=== PATIENT | female | born 1960 | race Caucasian/White ===

== ENCOUNTER 2019-03-07 10:10 | Outpatient (CLI) | payer BC, SELFPAY ==
--- NOTE | ~2019-03-07 | XR_ITS ---
EXAMINATION: XR lumbar spine 2-3V EXAM DATE: 03/07/2019 11:23 INDICATION: No known recent injury provided at this time. Pain of the low back. TECHNIQUE: Lumber spine frontal, lateral, lateral L5-S1 projections for interpretation. There is no prior study for comparison. FINDINGS: The vertebral bodies are aligned in the AP dimension. Vertebral body and disc heights are well-maintained. There is mild diffuse lumbar facet arthropathy. No spondylolysis. Sacrum, sacroiliac joints, sacral arcuate lines are intact. Paraspinal soft tissue is unremarkable. IMPRESSION: 1. Mild lumbar facet arthropathy. Reviewed, dictated and finalized at location B. BILITATION CLERK
--- NOTE | 2019-03-07 11:15 | NEURO_ITS ---
Patient Number: [id number] Impression: # Complains of rodent exterminator feet problems. No history of diabetes. 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 # Neurogenic changes in distal muscles. # Further evaluation recommended. Nerve Conduction Studies Anti Sensory Summary Table Stim Site NR Peak (ms) P-T Amp (?V) Site1 Site2 Delta-P (ms) Dist (cm) Og (m/s) Left Sup Fibular Anti Sensory (Ant Lat Mall) 14 cm 4.6 20.5 14 cm Ant Lat Mall 4.6 16.0 35 Right Sup Fibular Anti Sensory (Ant Lat Mall) 14 cm 3.5 9.2 14 cm Ant Lat Mall 3.5 16.0 46 Left Sural Anti Sensory (Lat Mall) Calf 3.8 9.9 Calf Lat Mall 3.8 16.0 42 Right Sural Anti Sensory (Lat Mall) Calf 3.4 22.1 Calf Lat Mall 3.4 16.0 47 Motor Summary Table Stim Site NR Onset (ms) O-P Amp (mV) Site1 Site2 Delta-0 (ms) Dist (cm) Og (m/s) Left Peroneal Motor (Vastus Med) NO RESPONSE Ankle NR Popit NR Right Peroneal Motor (Vastus Med) Ankle 4.5 0.4 Popit Ankle 7.9 35.0 44 Popit 12.4 0.3 Left Tibial Motor (Abd Stokes Brev) NO RESPONSE Ankle NR Knee NR Right Tibial Motor (Abd Stokes Brev) NO RESPONSE Ankle NR Knee NR F Wave Studies NR F-Lat (ms) L-R F-Lat (ms) Left Peroneal (Mrkrs) (EDB) 61.05 2.11 Right Peroneal (Mrkrs) (EDB) 58.95 2.11 Left Tibial (Mrkrs) (Abd Hallucis) 59.88 1.52 Right Tibial (Mrkrs) (Abd Hallucis) 58.36 1.52 EMG Side Muscle Nerve Root Ins Act Fibs Amp Dur Recrt Comment Right AntTibialis Dp Br Fibular L4-5 Nml Nml Decr Nml Reduced Right Gastroc Tibial S1-2 Nml Nml Decr Nml Reduced Right Fibularis Long Sup Br Fibular L5-S1 Nml Nml Decr Nml Reduced Right Flex Dig Long Tibial L5-S2 Nml Nml Nml Nml Nml Right Ext Dig Brev Dp Br Fibular L5, S1 Nml Nml Decr >12ms Reduced Left AntTibialis Dp Br Fibular L4-5 Nml Nml Decr Nml Reduced Left Gastroc Tibial S1-2 Nml Nml Decr Nml Reduced Left Fibularis Long Sup Br Fibular L5-S1 Nml Nml Decr Nml Reduced Left Flex Dig Long Tibial L5-S2 Nml Nml Nml Nml Nml Left Ext Dig Brev Dp Br Fibular L5, S1 Nml Nml Decr >12ms Reduced Left AbdHallucis MedPlantar S1-2 Nml Nml Decr >12ms Reduced Right AbdHallucis MedPlantar S1-2 Nml Nml Decr >12ms Reduced MTDD
== END 2019-03-07 10:11 | disposition home or self-care (01) ==
PROVIDERS: PCP Family Medicine; Visit Provider Family Medicine
DX: G62.9 Polyneuropathy, unspecified (principal)
CPT/HCPCS: 72100; 95886; 95910

== ENCOUNTER → 2020-01-09 09:28 | Outpatient (REF) | payer BC, SELFPAY | LOC: ANHLAB 09:28 | PROVIDERS: PCP Family Medicine; Visit Provider Nurse Practitioner | DX: L82.1 Other seborrheic keratosis (principal); C44.311 Basal cell carcinoma of skin of nose | CPT/HCPCS: 88305 ==

== ENCOUNTER → 2020-03-25 08:54 | Outpatient (REF) | payer BC, SELFPAY | LOC: ANHLAB 08:54 | PROVIDERS: PCP Family Medicine; Visit Provider Nurse Practitioner | DX: C44.311 Basal cell carcinoma of skin of nose (principal) | CPT/HCPCS: 88305; 88331 ==

== ENCOUNTER 2021-09-19 09:16 | Outpatient (CLI) | payer OTHER, SELFPAY ==
--- NOTE | ~2021-09-19 | MM_ITS ---
EXAMINATION: MM screening [facility] BI w edd HISTORY: Screening mammogram TECHNIQUE: Craniocaudal and mediolateral oblique 3-D tomosynthesis images were obtained and synthetic 2-D images were generated. CAD analysis was submitted and interpreted. COMPARISON: 05/27/2018, 03/16/2014 BREAST PARENCHYMAL COMPOSITION: There are scattered areas of fibroglandular density. FINDINGS: There is no suspicious mass, calcification, or architectural distortion to suggest malignan cy in either breast. There has been no suspicious interval change. IMPRESSION: 1. No mammographic evidence of malignancy. 2. Recommend routine screening mammography in one year. BI-RADS Category 1: Negative Reviewed, dictated and finalized at location A.
== END 2021-09-19 09:17 | disposition home or self-care (01) ==
PROVIDERS: PCP Family Medicine; Visit Provider Family Medicine
DX: Z12.31 Encounter for screening mammogram for malignant neoplasm of breast (principal)
CPT/HCPCS: 77063; 77067

== ENCOUNTER 2021-10-07 16:42 | Outpatient (CLI) | payer OTHER, SELFPAY ==
--- NOTE | ~2021-10-07 | XR_ITS ---
XR hip BI 2V w AP pelvis DATE: 10/07/2021 17:06 INDICATION: Low back pain, bilateral hip pain TECHNIQUE: AP pelvis. AP and lateral views of each hip. COMPARISON: None FINDINGS: No pelvic fracture or bone destruction. The pubic symphysis and sacroiliac joints are intac t. No fracture or dislocation, avascular necrosis or bone destruction of either hip. Hip joint spaces ar e symmetric and well preserved. IMPRESSION: Negative Reviewed, dictated and finalized at location B. IMPRESSION: Negative
--- NOTE | ~2021-10-07 | XR_ITS ---
XR lumbar spine 2-3V DATE: 10/07/2021 17:06 INDICATION: Low back pain TECHNIQUE: AP, lateral, coned lateral lumbosacral views COMPARISON: 03/07/2019 lumbar spine FINDINGS: No fracture or dislocation or spondylolisthesis. Lumbar pedicles and included lower thoraci c pedicles are intact. Lumbar and lumbosacral interspaces are well preserved. The sacroiliac joints a re normal. IMPRESSION: Negative Reviewed, dictated and finalized at location B. IMPRESSION: Negative
== END 2021-10-07 16:43 | disposition home or self-care (01) ==
PROVIDERS: PCP Family Medicine; Visit Provider Physician Assistant
DX: M54.50 Low back pain, unspecified (principal); M25.559 Pain in unspecified hip
CPT/HCPCS: 72100; 73521

== ENCOUNTER → 2021-11-21 08:35 | Outpatient (CLI) | payer OTHER, SELFPAY ==
--- NOTE | ~2021-11-21 | MR_ITS ---
EXAMINATION: MR lumbar spine wo con DATE: 11/21/2021 09:08 INDICATION: Low back pain with sciatica including 2 months of right leg pain TECHNIQUE: Magnetic resonance imaging (MRI) of the lumbar spine was performed without intravenous con trast. Sequences included sagittal T2-weighted FSE, sagittal T2-weighted FS FSE, sagittal T1-weighted FSE, and axial T2-weighted FSE. COMPARISON: None FINDINGS: Alignment is normal. Vertebral body heights are normal. T1 and T2 hyperintense hemangioma at L3 and L 5. Marrow signal is otherwise normal. Disc heights are normal. The conus medullaris terminates at L1. There is normal signal in the caudal spinal cord. Paravertebral soft tissues are unremarkable. The f ollowing disc levels are specifically discussed: T12-L1: The disc does not extend beyond the endplate margin. There is minimal bilateral facet joint o steoarthritis. There is no neural foraminal stenosis. There is no central canal stenosis. L1-L2: The disc does not extend beyond the endplate margin. There is mild left and minimal right face t joint osteoarthritis. There is no neural foraminal stenosis. There is no central canal stenosis. L2-L3: The disc does not extend beyond the endplate margin. There is mild to moderate bilateral facet joint osteoarthritis. There is minimal bilateral neural foraminal stenosis. There is no central beverly l stenosis. L3-L4: The disc does not extend beyond the endplate margin. There is mild bilateral facet joint osteo arthritis. There is minimal bilateral neural foraminal stenosis. There is no central canal stenosis. L4-L5: Disc is mildly bulging. There is hypertrophy of the ligamentum flavum. There is moderate left and severe right facet joint osteoarthritis. There is mild bilateral neural foraminal stenosis. Ther e is mild central canal stenosis along with narrowing of the lateral recesses,, greater on the right where there appears be some compression of the traversing right L5 nerve root. L5-S1: The disc does not extend beyond the endplate margin. There is mild bilateral facet joint osteo arthritis. There is no neural foraminal stenosis. There is no central canal stenosis. IMPRESSION: 1. Mild lumbar spondylosis most prominent at L4-L5 compression of the traversing right and L5 nerve r oot at the right lateral recess. Correlate clinically for right-sided muscle weakness of great toe ex tension and sensory change of the medial foot and great toe. Reviewed, dictated and finalized at location B. IMPRESSION: 1. Mild lumbar spondylosis most prominent at L4-L5 compression of the traversin g right and L5 nerve root at the right lateral recess. Correlate clinically for right-sided muscle weakness of great toe extension and sensory change of the m edial foot and great toe.
== END ==
PROVIDERS: PCP Family Medicine; Visit Provider Physician Assistant
DX: M54.40 Lumbago with sciatica, unspecified side (principal); M47.896 Other spondylosis, lumbar region
CPT/HCPCS: 72148

== ENCOUNTER 2022-04-03 11:47 | Outpatient (CLI) | payer OTHER, SELFPAY ==
--- NOTE | ~2022-04-03 | XR_ITS ---
Lumbosacral Spine: AP and lateral views, with neutral, flexion, and extension positioning Clinical History: Pain Findings: The normal lordotic curve is maintained. The vertebral bodies and posterior elements are i ntact. No instability seen on flexion or extension. The intervertebral disc spaces are preserved. Th e sacroiliac joints are normally outlined. Impression: No significant abnormality. Reviewed, dictated and finalized at location . DENTIAL MORTGAGE MANAGER Impression: No significant abnormality.
== END 2022-04-03 11:48 | disposition home or self-care (01) ==
LOC: ANHIMG 11:49
PROVIDERS: PCP Family Medicine; Visit Provider Neurological Surgery
DX: M71.38 Other bursal cyst, other site (principal)
CPT/HCPCS: 72110

== ENCOUNTER 2022-05-22 13:26 | Outpatient (CLI) | payer OTHER, SELFPAY ==
--- NOTE | ~2022-05-22 | XR_ITS ---
XR lumbar spine min 4V 05/22/2022 14:17 Indication: Back pain Procedure: 4 views lumbar spine with flexion/extension views Comparison: 04/03/2022 Findings: There is first set hypertrophy at L4-5 and L5-S1 with grade 1 degenerative spondylolisthesi s at L4-5. No significant alteration of alignment with flexion/extension. No significant change from prior study. No fracture, subluxation or dislocation. Impression: 1: Mild lumbar spondylosis with grade 1 degenerative spondylolisthesis at L4-5. Reviewed, dictated and finalized at location B. Impression: 1: Mild lumbar spondylosis with grade 1 degenerative spondylolisthesis at L4-5.
--- NOTE | 2022-05-22 13:45 | ECG_ITS ---
Measurements Intervals Petros Rate: 66 P: 51 FL: 167 QRS: -9 QRSD: 97 T: 121 QT: 395 QTc: 415 Interpretive Statements SINUS RHYTHM BASELINE ARTIFACT LEFT VENTRICULAR HYPERTROPHY AND ST-T CHANGE ABNORMAL ECG NO PREVIOUS ECG AVAILABLE FOR COMPARISON Electronically Signed On 05-22-2022 16:54:53 CDT by Roque Gomez M.D.
[2022-05-22 14:11] LABS: Basophils Percent Auto 0.3 % (0.2-1.2); Eosinophils Absolute Auto 0.1 K/mm3 (0-0.3); Eosinophils Percent Auto 0.6 % (0-4.4); Hematocrit 44.5 % (37.0-47.0); Hemoglobin 14.4 g/dL (12.0-15.0); Immature Granulocyte Absolute 0.09 K/mm3 (0.00-0.031); Immature Granulocyte Percent A 0.7 % (0-0.5); Lymphocytes Absolute Auto 2.96 K/mm3 (0.9-3.2); Lymphocytes Percent Auto 23.9 % (18.3-44.2); Mean Corpuscular HGB Conc 32.4 g/dl (32-36); Mean Corpuscular Hemoglobin 28.9 pg (26-34); Mean Corpuscular Volume 89.2 fl (80-100); Mean Platelet Volume 9.4 fl (7.4-10.4); Monocytes Absolute Auto 1.1 K/mm3 (0.1-0.6); Monocytes Percent Auto 8.9 % (2.6-8.5); Neutrophils Absolute Auto 8.1 K/mm3 (1.3-6.7); Neutrophils Percent Auto 65.6 % (45.5-73.1); Platelet Count Result 359 k/mm3 (150-375); Red Blood Count 4.99 M/mm3 (4.2-5.4); Red Cell Distribution Width 14.2 % (11.5-14.5); White Blood Count 12.4 K/mm3 (4.5-10.0)
[2022-05-22 14:17] LABS: Appearance Urine Clear (Clear); Bacteria Urine 4+ /hpf; Bilirubin Urine Negative (Negative); Blood Urine 2+ (Negative); Color Urine Yellow (Yellow); Glucose Urine UA Negative (Negative); Ketones Urine Negative (Negative); Leukocyte Esterase Ur 2+ LEU/UL (Negative); Nitrate Urine Positive (Negative); Protein Urine Negative (Negative); Specific Grav Ur 1.024 (1.001-1.035); Squamous Epithelial Cell Urine None seen /hpf (Few); Urobilinogen Urine 0.2 mg/dL (<2.0); WBC Urine 21-50 /hpf
[2022-05-22 14:20] LABS: Anion Gap 6 mmol/L (8-16); Blood Urea Nitrogen 27 mg/dL (7-17); Calcium 9.9 mg/dL (8.4-10.2); Carbon Dioxide 34 mmol/L (22-30); Chloride 100 mmol/L (98-107); Estimated Glomerular Filt Rate > 60; Glucose 114 mg/dL (65-110); Potassium 3.6 mmol/L (3.4-5.0); Sodium 140 mmol/L (137-145)
[2022-05-22 14:21] LABS: Add Urine Microscopic? YES
[2022-05-22 14:23] LABS: Partial Thromboplastin Time 27.9 SECONDS (22.3-36.8); Prothrombin Time 13.2 Seconds (11.1-14.7)
== END 2022-05-22 13:27 | disposition home or self-care (01) ==
PROVIDERS: PCP Family Medicine; Visit Provider Neurological Surgery
DX: Z01.818 Encounter for other preprocedural examination (principal); M71.38 Other bursal cyst, other site; M47.816 Spondylosis without myelopathy or radiculopathy, lumbar region; R93.41 Abnormal radiologic findings on diagnostic imaging of renal pelvis, ureter, or bladder; I51.7 Cardiomegaly; R82.90 Unspecified abnormal findings in urine
CPT/HCPCS: 36415; 72110; 80048; 81001; 85025; 85610; 85730; 86850; 86870; 86880; 86900; 86901; 86902; 86905; 86922; 86971; 87077; 87086; 87186; 93005

== ENCOUNTER 2022-05-30 10:30 | Outpatient (CLI) | payer OTHER, SELFPAY ==
[2022-05-30 11:53] LABS: Appearance Urine Clear (Clear); Bacteria Urine None Seen /hpf; Bilirubin Urine Negative (Negative); Blood Urine 1+ (Negative); Color Urine Yellow (Yellow); Glucose Urine UA Negative (Negative); Hyaline Casts Urine Present /lpf; Ketones Urine Negative (Negative); Leukocyte Esterase Ur 1+ LEU/UL (Negative); Nitrate Urine Negative (Negative); Protein Urine Negative (Negative); RBC Urine 0-2 /hpf (0-2); Specific Grav Ur 1.017 (1.001-1.035); Squamous Epithelial Cell Urine Few /hpf (Few); Uric Acid Crystals Urine Present /hpf; Urobilinogen Urine 0.2 mg/dL (<2.0)
[2022-05-30 11:56] LABS: Add Urine Microscopic? YES
== END 2022-05-30 10:31 | disposition home or self-care (01) ==
PROVIDERS: PCP Family Medicine; Visit Provider Neurological Surgery
DX: R82.90 Unspecified abnormal findings in urine (principal)
CPT/HCPCS: 81001; 87086

== ENCOUNTER 2022-06-02 01:48 | Day surgery (SDC) | payer OTHER, SELFPAY ==
[2022-05-22 10:51] VITALS: BMI 30.9
--- NOTE | 2022-05-22 10:55 | PC.NURSE ---
Report to the Outpatient Waiting Room, entrance under the green pavilion located off [facility], at time 9:00 on date 06/02/22. Planned Procedure Time: 11:00. Time changes happen often and if your time is changed the preop area will call you the afternoon before. - You and your visitor will be asked to self-screen and do not enter if you have any COVID symptoms. - A mask is optional within the hospital at this time. Patients may have clear liquids (water, carbonated beverages, clear teas, apple juice) until 3 hours prior to surgery (8:00) with a maximum of 20 ounces. - No food from midnight until time of surgery Take the following medications with a SIP of water the morning of surgery: AMLODIPINE DO NOT STOP ANY OF YOUR OTHER PRESCRIPTION MEDICATIONS PRIOR TO SURGERY?EXCEPT THE FOLLOWING Medications to discontinue per physician: VITAMINS/SUPPLEMENTS Date to take last dose: 05/29/[address] CARR REGARDING ADVIL Please no make-up, nail german, hairspray, perfume, deodorant, or body powder the day of surgery. No jewelry (including any body piercings) or valuables the day of surgery, leave them at home. Please take a shower or bath the night before, or the morning of, surgery with an antibacterial soap. Wear comfortable, loose fitting clothing. - Jewelry must be removed prior to entering the operating room. Rings and piercings that are not removed may be cut off. - The hospital will not accept responsibility for valuables. - Please leave all valuables, including medications, at home the day of surgery. If you are going home after surgery, a licensed hazardous materials tanker driver must drive you home. - NO public transportation without another adult if you receive anesthesia. - We recommend that an adult stay with you for 24 hours following discharge. - We also recommend that you do not drive, make important decision, drink alcoholic beverages, or take any drugs that were not prescribed by your health care provider for at least 24 hours after your discharge time. Follow any additional instructions given to you from your surgeon. If you or anyone in your household have experienced Covid symptoms in the past week, please notify your surgeon or the nurse liaison at the phone number below for possible testing. Telephone instructions given to PT - JING HANCOCK and asked if any additional questions and then verbalized understanding. Patient advised to call surgeon office or pre surgery nurse liaison [phone] if any additional questions.
[2022-06-02] VITALS (8 sets, daily range): BP systolic 101–140; BP diastolic 46–73; PULSE 59–76; RESP 12–18; TEMP 37–37.1; O2SAT 98–100
--- NOTE | ~2022-06-02 | XR_ITS ---
EXAMINATION: XR fluoroscopy no charge DATE: 06/02/2022 11:46 INDICATION: L4-L5 lumbar decompression with removal of synovial cyst TECHNIQUE: Single lateral fluoroscopic spot image of the lower lumbar spine was obtained during proce dure performed by Dr. Oshea . Radiologist was not present for the imaging or procedure. The amount of fluoroscopy time used during this procedure was 0.1 minutes. COMPARISON: None. FINDINGS/IMPRESSION: Single spot image demonstrates a metallic probe projecting over the posterior ma rgin of the L4-L5 facet joints. See procedure note for further detail. Reviewed, dictated and finalized at location A.
[2022-06-02] MEDS: LACTATED RINGERS 1,000 ML 30 ML IV CONT (08:00)
--- NOTE | 2022-06-02 08:38 | WPDANESEPPF ---
Anes - Initial Pre Proc Eval Procedure: Operation Date: 06/02/22 09:00 Proposed Procedures p Lumbar Decompression with Removal Synovial Cyst L4-5 - Mary Oshea MD Date/Time: 06/02/22 08:38 Surgeon: Mary Oshea MD Pre Op Diagnosis: Lumbar Synovial Cyst Patient Data Age: 61 Gender: F Height: 1.63 m Weight: 88.9 kg Last Vital Signs Temp 37.1 C 06/02/22 07:30 Pulse 64 06/02/22 07:30 Resp 18 06/02/22 07:30 BP 140/72 06/02/22 07:30 Pulse Ox 98 06/02/22 07:30 O2 Del Method Room Air 06/02/22 07:30 Allergies Allergy/AdvReac Type Severity Reaction Status Date / Time No Known Allergies Allergy Unknown Verified 06/02/22 08:11 Home Medications Medication Instructions Recorded Confirmed Type amlodipine 5 mg tablet 5 mg PO DAILY #90 tabs 04/03/22 06/02/22 Rx hydrochlorothiazide 25 mg tablet 25 mg PO DAILY #90 tabs 05/18/22 06/02/22 Rx lisinopril 40 mg tablet 40 mg PO DAILY #90 tabs 05/18/22 06/02/22 Rx ibuprofen 200 mg tablet (Advil) 400 mg PO DAILY 05/22/22 06/02/22 History multivitamin 1 tablet PO DAILY 05/22/22 06/02/22 History ciprofloxacin HCl 500 mg tablet 500 mg PO Q12H #10 tabs 05/25/22 06/02/22 Rx Patient hx anesthesia problems: none Family hx anesthesia problems: none Results Review: All pre-operative results and documents have been reviewed as part of the pre-operative evaluation. [facility] Past Medical History Medical History Acute bilateral low back pain with bilateral sciatica Encounter for wellness examination in adult Erythrocytosis Essential hypertension IFG (impaired fasting glucose) Muscle cramp Neuropathy Pure hypercholesterolemia Right ear pain Tinnitus of right ear Tinnitus, bilateral Surgical History Surgical History S/P total hysterectomy Status post surgical removal of malignant neoplasm of skin Family History Family History Father Family history of lung cancer Mother Cancer Social History Social History Smoking status: Never smoker Second hand tobacco smoke exposure: No Alcohol intake: current Drinks per week: 3 Substance use: never Substance use type: does not use Living arrangements: with family Occupation/Education: occupation Gender identity (if verbalized by the patient): Female Sexual Orientation (if Verbalized by the Patient): Straight or Heterosexual Spiritual care concerns: No Anes - Eval Final PreProcedure Day of Procedure 06/02/22 08:38 Patient weight: obese Heart: regular rate and rhythm Lungs: clear to auscultation Airway: Mallampati scale class II Neurological: alert and oriented Last oral intake: >/= 8 hours ASA classification: III Emergent: no Anesthetic plan: proceed Anesthesia type and monitoring: general ETT and standard monitoring Results Review: All pre-operative results and documents have been reviewed as part of the pre-operative evaluation. Informed Consent: The patient's anesthetic plan and its attendant risks and benefits were discussed with the patient/family/POA. Questions were solicited and answers provided to the satisfaction of the patient/family/POA.
--- NOTE | 2022-06-02 09:32 | WPDHPUPDATE1 ---
History and Physical Update Update Date/Time: 06/02/22 09:32 History and Physical has been reviewed, including an updated exam of the patient. There are NO changes in the patient's condition. Risks, benefits, and alternatives have been discussed and questions answered. Patient agrees to proceed with procedure. Plan is for lumbar decompression with removal of synovial cyst L4-5
[2022-06-02] MEDS: ceFAZolin 2 GM/D5W 50 ML 2 GM/50 ML BAG IVPB (09:46)
[2022-06-02] MEDS: LIDO 1%/EPINEPHRINE 1:100,000 50 ML VIAL 10 ML INFILTRATE (10:28)
--- NOTE | 2022-06-02 11:09 | W.PM.PROC2 ---
Procedure Note - Detailed Date of Procedure 06/02/22 Pre-op Diagnosis Lumbar Synovial Cyst Post-op Diagnosis Same Procedure Performed lumbar laminectomy with removal of synovial cyst, L4-5 Surgeon Mary Oshea MD Anesthesia General Indications Randa Hubbard is a very pleasant? 61 year old? female who presents at the request of? her primary care physician with signs and symptoms of right lower extremity pain that fits best with an L5 radicular distribution in the setting of lumbar spondylosis with a right-sided synovial facet cyst at L4-5 that contributes to severe right lateral recess stenosis on imaging.? Randa has tried treatments that include formal physical therapy as well as acupuncture that has helped with her symptoms but she remains with radicular pain.? Randa has had 2 epidural steroid injections.? The 1st helped significantly with her pain for 48 hours.? A 2nd did not give lasting relief.In the office the most concerning symptom to the patient was? that while she can tolerate her pain during the day with nonsteroidal medications, early in the day as well as late in the day she can have pain that is quite severe, radiating it as high as 6/10. The patient and I have had an extended discussion in the office regarding the options for management of these clinical symptoms and radiographic findings. We have discussed the option of continued physical therapy and the benefit to continuation of her home exercise regimen. We have discussed the option of? Repeated interventional pain management strategies including GUMARO or ablative procedures. In this case we have more specifically discussed? that? as 2 epidural steroid injections have not given lasting relief of her pain, the likelihood that repeated at times it off for a different result a small. Finally, we have generally discussed the option of surgery. In the absence of functional deficits, I have explained that my preference is to exhaust non surgical options prior to consideration of surgery. However, we have discussed that? as she has been unable to obtain durable relief of symptoms with non surgical measures that it would be very reasonable to consider surgical intervention. In this case we have discussed that in the absence of dynamic instability, surgery would entail a lumbar decompression at L4-5 with removal of synovial cyst.? ?Randa is inclined to pursue surgery. I have discussed the indications as well as the risks of surgery including but not limited to bleeding, infection, CSF leak, numbness, weakness, paralysis, stroke, coma, even . We have discussed the fundamentals of the surgical procedure as well as the typical recovery from surgery. She indicates understanding and asks us to proceed with surgery, specifically a? lumbar laminectomy at L4-5 with removal of synovial cyst.? We have discussed the possible recurrence of synovial cysts and that if the cyst were to recur, symptomatically, we would at that point advocate for lumbar fusion.? The patient presented for surgery today. She did have a UTI prior to surgery but this was treated with antbiotics and a subsequent urine culture was clear. Description of Procedure The patient was brought into the operating room where general anesthesia was induced.? Appropriate monitoring was obtained.? The patient was turned into a prone position on the Olayinka table with a Jaquan frame.? Extremities were padded.? The patient was secured with straps to the table.? Localization was performed using intraoperative fluoroscopy and the? L4-5 level was identified. The patient's back was prepped and draped sterilely.? A surgical time out was performed.? The planned incision was infused with local anesthetic.? The incision was made using a #10 skin blade.? Hemostasis was achieved. Self retaining retractors were placed and advanced.? The? L4? spinous process was identified and the muscle was dissected off of the spinous process and lamina of L4 using bovie electrocaute
[2022-06-02] MEDS: BUPivacaine HCL 0.5% 10 ML AMP INFILTRATE (11:27)
[2022-06-02] MEDS: fentaNYL CITRATE INJ (*CRX) 100 MCG/2 ML VIAL 25 MCG IV PUSH ×2 (12:37→12:53)
[2022-06-02] MEDS: oxyCODONE HCL (*CRX) 5 MG TAB IR PO (12:52)
== END 2022-06-02 13:26 | disposition home or self-care (01) ==
PROVIDERS: PCP Family Medicine; Visit Provider Neurological Surgery
PROC: (CPT 63005; principal; 2022-06-02 09:00)
DX: M71.38 Other bursal cyst, other site (principal); I10 Essential (primary) hypertension; E78.00 Pure hypercholesterolemia, unspecified; E66.9 Obesity, unspecified; Z68.33 Body mass index [BMI] 33.0-33.9, adult
CPT/HCPCS: 63267; 99199; A9270; J0690; J1100; J1170; J2250; J2405; J2704; J2710; J3010; J7120

== ENCOUNTER 2022-07-08 15:31 | Outpatient (CLI) | payer OTHER, SELFPAY ==
--- NOTE | ~2022-07-08 | XR_ITS ---
EXAM: XR lumbar spine 2-3V DATE: 07/08/2022 15:49 HISTORY: Status Post Lumbar Decompression . COMPARISON: 05/22/2022. FINDINGS: 5 nonrib-bearing lumbar-type vertebral bodies. Pedicles intact. Stable grade 1 anterolisth esis at L4-5. Vertebral body heights preserved. Mild concave endplate deformities as can be seen with osteoporosis. Mild disc space narrowing at L5-S1. Multilevel mild and moderate facet arthropathy. No fracture or dislocation. Subcutaneous gas posterior to the facet joints at L3-L4, likely related to recent surgical procedure. IMPRESSION: Post surgical gas in the soft tissues posterior to the L3-4 facet joints. Stable grade 1 anterolisthesis at L4-5. Possible osteoporosis, consider bone density scanning. Reviewed, dictated and finalized at location K. IMPRESSION: Post surgical gas in the soft tissues posterior to the L3-4 facet j oints. Stable grade 1 anterolisthesis at L4-5. Possible osteoporosis, consider bone density scanning.
== END 2022-07-08 15:32 | disposition home or self-care (01) ==
PROVIDERS: PCP Family Medicine; Visit Provider Neurological Surgery
DX: Z98.890 Other specified postprocedural states (principal)
CPT/HCPCS: 72100

== ENCOUNTER 2023-01-11 02:19 | Day surgery (SDC) | payer OTHER, SELFPAY ==
[2022-12-24 13:35] VITALS: BMI 31.4
--- NOTE | 2023-01-08 08:59 | SUR.PREOP ---
Patient called regarding upcoming procedure. Reviewed preop instructions, appointment times, and procedure prep.
--- NOTE | 2023-01-08 14:41 | PM.HPGS ---
History of Present Illness History of Present Illness Consent: Risks, benefits, and alternatives have been discussed and questions answered. Patient agrees to proceed with procedure. Chief complaint: hx of colon polyps Narrative: Randa Hubbard is a 62 year old female Here for colon cancer screening. Eight years ago she had removal of 2 adenomatous polyps. Review of Systems Review of Systems: All systems reviewed & are unremarkable except as noted in HPI and below PMFSH Past Medical History Medical History Acute bilateral low back pain with bilateral sciatica Encounter for wellness examination in adult Erythrocytosis Essential hypertension IFG (impaired fasting glucose) Muscle cramp Neuropathy Pure hypercholesterolemia Right ear pain Tinnitus of right ear Tinnitus, bilateral Surgical History Surgical History S/P total hysterectomy Status post surgical removal of malignant neoplasm of skin Family History Family History Father Family history of lung cancer Mother Cancer Social History Social History Social History: Randa is very confident filling out medical forms. In the last 12 months she has not received any assistance from an organization or program. Smoking status: Never smoker Second hand tobacco smoke exposure: No Alcohol intake: current Drinks per week: 3 Substance use: never Substance use type: does not use Lack of Transportation: No Lack of Food: Never True Current Housing: I Have Housing Concerned About Future Housing: No Difficulty Paying Gas/Electric Bills: No Difficulty Paying for Meds: No Currently Unemployed: No Education: Bachelor's Degree Difficulty w/ Childcare or Family Care: No Living arrangements: with family Occupation/Education: occupation Gender identity (if verbalized by the patient): Female Sexual Orientation (if Verbalized by the Patient): Straight or Heterosexual Spiritual care concerns: No Meds Home Medications and Allergies Home Medications Medication Instructions Recorded Confirmed Type ibuprofen 200 mg tablet (Advil) 400 mg PO DAILY 05/22/22 01/11/23 History multivitamin 1 tablet PO DAILY 05/22/22 01/11/23 History cyclobenzaprine 10 mg tablet 10 mg PO TID PRN muscle spasm #30 06/02/22 01/11/23 Rx tabs hydrochlorothiazide 25 mg tablet 25 mg PO DAILY #90 tabs 12/08/22 01/11/23 Rx lisinopril 40 mg tablet 40 mg PO DAILY #90 tabs 12/08/22 01/11/23 Rx Allergies Allergy/AdvReac Type Severity Reaction Status Date / Time No Known Allergies Allergy Unknown Verified 01/11/23 08:43 Exam Const: General: alert Orientation/consciousness: patient oriented x3 Resp: Auscultation: clear to auscultation bilaterally Cardio: Rhythm: regular rhythm GI: GI Palp: Yes Soft to palpation and No Tenderness to palpation present (GI) Neuro: General: patient oriented x3 Assessment and Plan Assessment and plan (1) Colon cancer screening: Code(s): Z12.11 - Encounter for screening for malignant neoplasm of colon Status: Acute Assessment and Plan: Colonoscopy with possible biopsy or polypectomy or cautery or injection of substances.
[2023-01-11 08:37] VITALS: BP 132/73; PULSE 69; RESP 16; TEMP 36.5; O2SAT 98; BMI 32.2
[2023-01-11] MEDS: LACTATED RINGERS 1,000 ML 150 ML IV CONT (08:56)
--- NOTE | 2023-01-11 09:29 | WPDANESEPPF ---
Anes - Initial Pre Proc Eval Procedure: Operation Date: 01/11/23 10:00 Proposed Procedures p Colonoscopy - Lalo Nguyen MD Date/Time: 01/11/23 09:29 Surgeon: Lalo Nguyen MD Pre Op Diagnosis: hx of colon polyps Patient Data Age: 62 Gender: F Height: 1.63 m Weight: 85.2 kg Last Vital Signs Temp 97.7 F 01/11/23 08:37 Pulse 69 01/11/23 08:37 Resp 16 01/11/23 08:37 BP 132/73 01/11/23 08:37 Pulse Ox 98 01/11/23 08:37 O2 Del Method Room Air 01/11/23 08:37 Allergies Allergy/AdvReac Type Severity Reaction Status Date / Time No Known Allergies Allergy Unknown Verified 01/11/23 08:43 Home Medications Medication Instructions Recorded Confirmed Type ibuprofen 200 mg tablet (Advil) 400 mg PO DAILY 05/22/22 01/11/23 History multivitamin 1 tablet PO DAILY 05/22/22 01/11/23 History cyclobenzaprine 10 mg tablet 10 mg PO TID PRN muscle spasm #30 06/02/22 01/11/23 Rx tabs hydrochlorothiazide 25 mg tablet 25 mg PO DAILY #90 tabs 12/08/22 01/11/23 Rx lisinopril 40 mg tablet 40 mg PO DAILY #90 tabs 12/08/22 01/11/23 Rx Patient hx anesthesia problems: none Family hx anesthesia problems: none Results Review: All pre-operative results and documents have been reviewed as part of the pre-operative evaluation. [facility] Past Medical History Medical History Acute bilateral low back pain with bilateral sciatica Encounter for wellness examination in adult Erythrocytosis Essential hypertension IFG (impaired fasting glucose) Muscle cramp Neuropathy Pure hypercholesterolemia Right ear pain Tinnitus of right ear Tinnitus, bilateral Surgical History Surgical History S/P total hysterectomy Status post surgical removal of malignant neoplasm of skin Family History Family History Father Family history of lung cancer Mother Cancer Social History Social History (Reviewed 09/29/22 @ 15:24 by ASH Bean Social History: Randa is very confident filling out medical forms. In the last 12 months she has not received any assistance from an organization or program. Smoking status: Never smoker Second hand tobacco smoke exposure: No Alcohol intake: current Drinks per week: 3 Substance use: never Substance use type: does not use Lack of Transportation: No Lack of Food: Never True Current Housing: I Have Housing Concerned About Future Housing: No Difficulty Paying Gas/Electric Bills: No Difficulty Paying for Meds: No Currently Unemployed: No Education: Bachelor's Degree Difficulty w/ Childcare or Family Care: No Living arrangements: with family Occupation/Education: occupation Gender identity (if verbalized by the patient): Female Sexual Orientation (if Verbalized by the Patient): Straight or Heterosexual Spiritual care concerns: No Anes - Eval Final PreProcedure Day of Procedure 01/11/23 09:29 Patient weight: obese Heart: regular rate and rhythm Lungs: clear to auscultation Airway: Mallampati scale class II Neurological: alert and oriented Last oral intake: >/= 8 hours ASA classification: III Emergent: no Anesthetic plan: proceed Anesthesia type and monitoring: general GIVS and standard monitoring Results Review: All pre-operative results and documents have been reviewed as part of the pre-operative evaluation. Informed Consent: The patient's anesthetic plan and its attendant risks and benefits were discussed with the patient/family/POA. Questions were solicited and answers provided to the satisfaction of the patient/family/POA.
[2023-01-11] MEDS: SIMETHICONE ORAL SUSPENSION 20 MG/0.3 ML 30 ML BOTTLE 0.6 ML IRRIGATION (09:56)
[2023-01-11 10:04] VITALS: BP 100/61; PULSE 54; RESP 18; O2SAT 98
[2023-01-11 10:14] VITALS: BP 125/80; PULSE 58; RESP 21; O2SAT 99
[2023-01-11 10:24] VITALS: BP 120/78; PULSE 52; RESP 21; O2SAT 99
== END 2023-01-11 10:32 | disposition home or self-care (01) ==
PROVIDERS: PCP Family Medicine; Visit Provider Internal Medicine Gastroenterology
PROC: 0DJD8ZZ Inspection of Lower Intestinal Tract, Via Natural or Artificial Opening Endoscopic (ICD-10-PCS; CPT 45378; principal; 2023-01-11 10:00)
DX: Z12.11 Encounter for screening for malignant neoplasm of colon (principal); Z86.010 Personal history of colon polyps; I10 Essential (primary) hypertension; E78.5 Hyperlipidemia, unspecified
CPT/HCPCS: 45378; J2704; J7120

== ENCOUNTER 2023-03-05 07:50 | Outpatient (CLI) | payer OTHER, SELFPAY ==
--- NOTE | ~2023-03-05 | MM_ITS ---
EXAMINATION: MM screening [facility] BI w edd HISTORY: Screening mammogram TECHNIQUE: Craniocaudal and mediolateral oblique 3-D tomosynthesis images were obtained and synthetic 2-D images were generated. CAD analysis was submitted and interpreted. COMPARISON: 09/19/2021, 05/27/2018, 03/16/2014 BREAST PARENCHYMAL COMPOSITION: There are scattered areas of fibroglandular density. FINDINGS: No suspicious mass, calcification, or architectural distortion are identified in either cecilio ast to suggest malignancy. There has been no suspicious interval change. IMPRESSION: 1. No mammographic evidence of malignancy. 2. Recommend routine screening mammography in one year. BI-RADS Category 1: Negative Reviewed, dictated and finalized at location A. NURSE
== END 2023-03-05 07:51 | disposition home or self-care (01) ==
LOC: ANHIMG 07:52
PROVIDERS: PCP Family Medicine; Visit Provider Family Medicine
DX: Z12.31 Encounter for screening mammogram for malignant neoplasm of breast (principal)
CPT/HCPCS: 77063; 77067

== ENCOUNTER 2024-06-10 09:05 | Outpatient (CLI) | payer OTHER, SELFPAY ==
--- NOTE | ~2024-06-10 | MM_ITS ---
EXAMINATION: MM screening [facility] w [facility] HISTORY: Screening TECHNIQUE: Craniocaudal and mediolateral oblique 3-D tomosynthesis images were obtained and synthetic 2-D images were generated. CAD analysis was submitted and interpreted. COMPARISON: Comparison to multiple prior studies sequentially, with oldest reviewed study dated 05/27. BREAST PARENCHYMAL COMPOSITION: Not dense: There are scattered areas of fibroglandular density. FINDINGS: There is no evidence of suspicious mass, calcification, or architectural distortion to sugg est malignancy in either breast. There has been no suspicious interval change. IMPRESSION: 1. No mammographic evidence of malignancy. 2. Recommend routine screening mammography in one year. BI-RADS Category 1: Negative Reviewed, dictated and finalized at location A.
== END 2024-06-10 09:06 | disposition home or self-care (01) ==
LOC: MICIMG 09:06
PROVIDERS: PCP Family Medicine; Visit Provider Family Medicine
DX: Z12.31 Encounter for screening mammogram for malignant neoplasm of breast (principal)
CPT/HCPCS: 77063; 77067

== ENCOUNTER 2024-08-21 08:42 | Outpatient (CLI) | payer OTHER, SELFPAY ==
--- NOTE | ~2024-08-21 | MR_ITS ---
MRI of the lumbar spine Clinical History: Stenosis Technique: Axial T2-weighted images, and sagittal T1-weighted, T2-weighted, and T2 fat-sat images wer e acquired. COMPARISON: 11/21/2021 Findings: There is no fracture or subluxation of the lumbar spine. Vertebral bodies maintain normal h eight and alignment. No suspicious bone marrow signal abnormality seen. At L1-L2, L2-L3, L3-L4, intervertebral disc spaces are well preserved. No disc bulge or herniation. T here is moderate to advanced facet hypertrophy at these levels. No spinal canal stenosis or neural fo raminal narrowing at these levels. At L4-L5, there is minimal disc bulge with severe facet arthropathy. Probable prior posterior decompr ession. No spinal canal stenosis or neural foraminal narrowing. At L5-S1, there is no disc bulge or herniation. There is mild to moderate facet arthropathy. No centr al canal stenosis or neural foraminal narrowing. Paravertebral soft tissues are unremarkable. Impression: Mild degenerative change as above. Probable prior posterior decompression at L4-L5. Reviewed, dictated and finalized at location . Impression: Mild degenerative change as above. Probable prior posterior decompression at L4-L5.
== END 2024-08-21 08:43 | disposition home or self-care (01) ==
LOC: MICIMG 08:43
PROVIDERS: PCP Family Medicine; Visit Provider Nurse Practitioner Adult Health
DX: M47.816 Spondylosis without myelopathy or radiculopathy, lumbar region (principal); M48.061 Spinal stenosis, lumbar region without neurogenic claudication
CPT/HCPCS: 72148

== ENCOUNTER 2024-10-26 10:14 | Outpatient (CLI) | payer OTHER, SELFPAY ==
--- NOTE | ~2024-10-26 | MR_ITS ---
EXAMINATION: MR thoracic spine wo simon, 10/26/2024 10:15 CDT HISTORY: Thoracic back pain COMPARISON: None TECHNIQUE: Multi-planar multi-sequence images were obtained of the thoracic spine without contrast per protocol. FINDINGS: Moderate loss of vertebral height throughout, no fracture or subluxation. Marrow signal is appropriate. There is no abnormal signal within the posterior elements. Scattered areas of subcentimeter hemangioma formation noted. There are a few foci which are hyperintense on STIR sequences probable atypical hemangiomas in the absence of previous neoplasm. Posterior alignment is intact. There is moderate loss of disc height throughout most marked at T9-T10 with disc desiccation and endplate degenerative changes. There is no severe canal or foraminal stenosis There is no abnormal signal within the cord. The soft tissues appear unremarkable IMPRESSION: Degenerative changes detailed above. Reviewed, dictated and finalized at location A.
== END 2024-10-26 10:15 | disposition home or self-care (01) ==
LOC: MICIMG 10:15
PROVIDERS: PCP Family Medicine; Visit Provider Nurse Practitioner Adult Health
DX: M51.24 Other intervertebral disc displacement, thoracic region (principal)
CPT/HCPCS: 72146